=== PATIENT | male | born 1950 | race Caucasian/White ===

== ENCOUNTER 2020-11-04 10:14 | Outpatient (CLI) | payer MEDICARE | END 2020-11-04 10:15 | disposition critical access hospital (66) | LOC: EMS 10:14 | DX: R25.1 Tremor, unspecified (principal); R52 Pain, unspecified; R53.1 Weakness | CPT/HCPCS: A0425; A0427 ==

== ENCOUNTER 2020-11-04 10:48 | Emergency (ER) | payer BC, MEDICARE ==
[2020-11-04] MEDS ORDERED: SODIUM CHLORIDE 0.9% 1,500 ML IV STA (10:59)
[2020-11-04] MEDS ORDERED: ACETAMINOPHEN 325 MG TABLET PO STA (11:01)
--- NOTE | 2020-11-04 11:02 | ED Physician Documentation ---
History of Present Illness - Stated complaint Stated Complaint: CHILLS/N/V - History obtained from History obtained from: Patient - Additonal information Additional information: 70-year-old man with past medical history of rheumatoid arthritis, psoriasis, high blood pressure, hyperlipidemia, presents with nausea and vomiting and chills starting this morning. Patient states that he had a right shoulder infection and was on antibiotics back in June. It is worsening over the past week and is now painful and swollen. Otherwise, denies chest pain, shortness of breath, cough , diarrhea, urinary symptoms, abdominal pain, back pain. Review of Systems Ten Systems: 10 systems reviewed and negative Constitutional: reports: Fever, Chills, Myalgias, Fatigue Cardiac: denies: Chest pain / pressure Respiratory: denies: Dyspnea GI: reports: Nausea, Vomiting. denies: Abdominal Pain : denies: Dysuria Skin: reports: Lesions PD PAST MEDICAL HISTORY - Past Medical History Cardiovascular: Hypertension Respiratory: None Endocrine/Autoimmune: None GI: GERD : Other HEENT: None Psych: None Musculoskeletal: None Derm: Psoriasis - Present Medications Home Medications: Ambulatory Orders Medication Instructions Recorded Confirmed Lisinopril/Hydrochlorothiazide 1 each PO DAILY 10/11/13 10/11/13 [Lisinopril-Hctz 10-12.5 mg Tab] Atorvastatin [Lipitor] 20 mg ORAL DAILY 11/04/20 11/04/20 Etanercept [Enbrel] 50 mg SQ ONCE 11/04/20 11/04/20 Oxybutynin [Ditropan] 5 mg PO DAILY 11/04/20 11/04/20 cephALEXin [Keflex] 500 mg PO Q6H 10 Days #40 11/04/20 - Allergies Allergies/Adverse Reactions: Allergies Allergy/AdvReac Type Severity Reaction Status Date / Time No Known Drug Allergies Allergy Verified 11/04/20 11:06 PD ED PE NORMAL - Vitals Vital signs reviewed: Yes - General General: Alert and oriented X 3, No acute distress, Well developed/nourished - HEENT HEENT: Atraumatic, PERRL, EOMI - Neck Neck: Supple, no meningeal sign - Cardiac Cardiac: Other (borderline tachycardic rate, regular rhythm) - Respiratory Respiratory: No respiratory distress, Clear bilaterally - Abdomen Abdomen: Non tender, Non distended - Back Back: No CVA TTP - Derm Derm: Normal color, Warm and dry, Other (3 x 3 cm boil with fluctuant swelling to right posterior shoulder) - Extremities Extremities: No deformity - Neuro Neuro: Alert and oriented X 3 - Psych Psych: Normal mood, Normal affect Results - Vitals Vitals: Vital Signs - 24 hr 11/04/20 11/04/20 11/04/20 10:59 11:10 11:55 Temperature 38.2 C H 38.1 C H 37.7 C Heart Rate 97 98 84 Respiratory 37 H 22 16 Rate Blood Pressure 111/57 L 120/67 114/65 O2 Saturation 95 97 97 11/04/20 13:39 Temperature 37.3 C Heart Rate 74 Respiratory 18 Rate Blood Pressure 121/71 O2 Saturation 97 Oxygen O2 Source Room air - Labs Labs: Laboratory Tests 11/04/20 11/04/20 11/04/20 11:23 11:23 11:23 WBC 13.8 H RBC 3.94 L Hgb 12.5 L Hct 37.1 L MCV 94.2 H MCH 31.7 H MCHC 33.7 RDW 13.2 Plt Count 239 MPV 10.2 Neut # (Auto) 12.9 H Lymph # (Auto) 0.4 L Ward # (Auto) 0.4 Eos # (Auto) 0.0 Baso # (Auto) 0.1 Absolute Nucleated RBC 0.00 Nucleated RBC % 0.0 Sodium 138 Potassium 3.5 Chloride 108 Carbon Dioxide 23 Anion Gap 7.0 BUN 13 Creatinine 0.7 Estimated GFR (MDRD) 111 Glucose 136 H Lactic Acid 1.0 Calcium 7.7 L Total Bilirubin 1.4 H AST 15 ALT 17 Alkaline Phosphatase 49 Total Protein 6.4 L Albumin 3.5 Globulin 2.9 Albumin/Globulin Ratio 1.2 Procedures - Abscess I&D (location) Back right Preparation: Betadine, Lidocaine 1%, With epi Incision: Incised with scalpel, Purulent drainage, Loculations broken, Irrigated, Packed, Culture obtained Other: Pt tolerated well, Dressing applied, Antibiotic prescribed PD MEDICAL DECISION MAKING - ED course ED course: 70-year-old man presents with septic vital signs with apparent right shoulder abscesses likely source. Lactic acid 1. Vital signs improved status post IV fluids and Tylenol. Patient well-appearing. Abscess drained and wound culture sent. Antibiotics prescribed. Patient will follow up For wound check in 48 hours.. Strict return precautions given. Departure - Departure Disposition: 01 Home, Self Care Condition: Good Instructions: ED Abscess IandD Prescriptions: cephALEXin [Keflex] 500 mg PO Q6H 10 Days #40 Comments: You were seen in the emergency department for a bloodstream infection related to your abscess. I drained the abscess, gave you IV fluids and Tylenol, and sent blood and wound cultures. Follow-up in 48 to 72 hours for wound check. Return to the emergency department earlier if you continue to have fevers after 48 hours of antibiotics. Return also if you have any new or worsening symptoms or other concerns.
[2020-11-04 11:37] LABS: BASOPHILS # (AUTO) 0.1 10^3/uL (0.0-0.1); BASOPHILS % (AUTO) 0.4 %; EOSINOPHILS % (AUTO) 0.1 %; HCT - HEMATOCRIT 37.1 % (42.0-52.0); HGB - HEMOGLOBIN 12.5 g/dL (14.0-18.0); LYMPHOCYTES # (AUTO) 0.4 10^3/uL (1.5-3.5); LYMPHOCYTES % (AUTO) 2.7 %; MEAN CORPUSCULAR HEMOGLOBIN 31.7 pg (27.0-31.0); MEAN CORPUSCULAR HGB CONC 33.7 g/dL (32.0-36.0); MEAN CORPUSCULAR VOLUME 94.2 fL (80.0-94.0); MEAN PLATELET VOLUME 10.2 fL (7.4-11.4); MONOCYTES # (AUTO) 0.4 10^3/uL (0.0-1.0); MONOCYTES % (AUTO) 2.9 %; NEUTROPHILS # (AUTO) 12.9 10^3/uL (1.5-6.6); NEUTROPHILS % (AUTO) 93.5 %; PLT - PLATELET COUNT 239 10^3/uL (130-450); RED BLOOD COUNT 3.94 10^6/uL (4.70-6.10); RED CELL DISTRIBUTION WIDTH 13.2 % (12.0-15.0); WHITE BLOOD COUNT 13.8 x10^3/uL (4.8-10.8)
[2020-11-04 11:50] LABS: ALBUMIN 3.5 g/dL (3.2-5.5); ALBUMIN/GLOBULIN RATIO 1.2 (1.0-2.2); BILIRUBIN,TOTAL 1.4 mg/dL (0.2-1.0); CALCIUM 7.7 mg/dL (8.5-10.3); CREATININE 0.7 mg/dL (0.6-1.2); POTASSIUM 3.5 mmol/L (3.5-5.0); TOTAL PROTEIN 6.4 g/dL (6.7-8.2)
[2020-11-04] MEDS ORDERED: LIDOCAINE 1% 2 ML VIAL MC ONE (14:42)
[2020-11-04] MEDS ORDERED: cefTRIAXone 1 GM VIAL IM STA (14:42)
[2020-11-04 14:58] VITALS: BP 141/81
== END 2020-11-04 15:07 | disposition home or self-care (01) ==
LOC: EDUNIT# → ED 10:48
DX: L02.413 Cutaneous abscess of right upper limb (principal)
CPT/HCPCS: 10061; 36415; 80053; 83605; 85025; 87040; 87070; 87205; 96372; 99283; 99284; A9270